=== PATIENT | female | born 2000 | race Caucasian/White ===

== ENCOUNTER 2021-12-31 12:46 | Emergency (ER) | payer OTHER ==
[2021-12-31 13:26] VITALS: BMI 30.2
[2021-12-31] MEDS ORDERED: IBUPROFEN 600 MG TABLET (FP) PO ONE ×2 (14:00→14:06)
[2021-12-31 15:38] VITALS: BP 128/60; PULSE 87; TEMP 98.1
[2022-01-01 12:11] LABS: SARS-CoV-2 NAA Not Detected (Not Detected)
== END 2021-12-31 15:38 | disposition home or self-care (01) ==
LOC: JER 12:46
DX: J02.9 Acute pharyngitis, unspecified (principal)
CPT/HCPCS: 87651; 87804; 99283-25; C9803-CS; U0003; U0005

== ENCOUNTER 2024-05-25 13:44 | Emergency (ER) | payer OTHER ==
[2024-05-25 13:51] VITALS: BP 110/68; PULSE 95; RESP 20; TEMP 99.4; BMI 34.9
[2024-05-25] MEDS: ACETAMINOPHEN 325 MG TABLET (FP) PO ONE (14:18)
[2024-05-25] MEDS ORDERED: ACETAMINOPHEN 325 MG TABLET (FP) ONE (14:18)
[2024-05-25 14:37] LABS: EPI CELLS 14 /uL (0-25.1); HYALINE CASTS 1 /uL (0-3.1); PH,URINE 5.5 (5.0-8.0); URINE APPEARANCE CLEAR; URINE BACTERIA 39 /uL (0-1359); URINE BILIRUBIN NEGATIVE (NEGATIVE); URINE COLOR YELLOW; URINE GLUCOSE (UA) NEGATIVE (NEGATIVE); URINE KETONE NEGATIVE (NEGATIVE); URINE LEUK ESTERASE NEGATIVE (NEGATIVE); URINE NITRITE NEGATIVE (NEGATIVE); URINE PROTEIN NEGATIVE (NEGATIVE); URINE RBC 36 /uL (0-23.9); URINE UROBILINOGEN 0.2 mg/dL (0.2-1.0); URINE WBC 10 /uL (0-25.8)
[2024-05-25 16:45] LABS: HIV INTERPRETATION NEGATIVE (NEGATIVE)
== END 2024-05-25 14:54 | disposition home or self-care (01) ==
LOC: JERFT 13:44
DX: R09.81 Nasal congestion (principal); J02.9 Acute pharyngitis, unspecified; R05.9 Cough, unspecified; R50.9 Fever, unspecified; M79.10 Myalgia, unspecified site; R07.89 Other chest pain; J06.9 Acute upper respiratory infection, unspecified; Z20.822 Contact with and (suspected) exposure to COVID-19
CPT/HCPCS: 0241U-QW; 36415; 81003; 84703; 86803; 87389; 99283-25

== ENCOUNTER 2024-05-28 04:19 | Emergency (ER) | payer OTHER ==
[2024-05-28 04:35] VITALS: RESP 18; TEMP 98; BMI 28.3
[2024-05-28] MEDS ORDERED: ACETAMINOPHEN 500 MG TABLET (FP) ONE (05:36)
[2024-05-28] MEDS: ACETAMINOPHEN 500 MG TABLET (FP) PO ONE (05:45)
[2024-05-28] MEDS: KETOROLAC TROMETHAMINE 15 MG/ML VIAL IM ONE (05:47)
[2024-05-28] MEDS ORDERED: KETOROLAC TROMETHAMINE 30 MG/1 ML VIAL ONE (06:28)
[2024-05-28] MEDS: KETOROLAC TROMETHAMINE 30 MG/1 ML VIAL IM ONE (06:33)
[2024-05-28 06:34] VITALS: BP 102/67; PULSE 72
== END 2024-05-28 06:34 | disposition home or self-care (01) ==
LOC: JER 04:19
PROC: 3E0133Z Introduction of Anti-inflammatory into Subcutaneous Tissue, Percutaneous Approach (ICD-10-PCS; principal; 2024-05-28)
DX: M25.511 Pain in right shoulder (principal)
CPT/HCPCS: 73030-TC-RT-FY; 84703; 99284-25

== ENCOUNTER 2024-05-30 18:04 | Emergency (ER) | payer OTHER ==
[2024-05-30 18:11] VITALS: TEMP 99; BMI 34.9
[2024-05-30] MEDS ORDERED: ONDANSETRON 4 MG/2 ML VIAL ONE (20:09)
[2024-05-30] MEDS ORDERED: FAMOTIDINE 20 MG/50 ML IVPB 20 MG/50 ML MG IVPB ONE (20:09)
[2024-05-30] MEDS ORDERED: ACETAMINOPHEN INJECTION 100 ML ONE (20:09)
[2024-05-30] MEDS: ACETAMINOPHEN 1000 MG/100 ML BAG IVPB ONE (20:35)
[2024-05-30] MEDS: SODIUM CHLORIDE 0.9% 500 ML INFUS.BAG IV ONE (20:35)
[2024-05-30] MEDS: DEXTROSE 5%-NORMAL SALINE 1,000 ML IV ONE ×2 (20:35→21:34)
[2024-05-30] MEDS: FAMOTIDINE 20 MG/50 ML IVPB 20 MG/50 ML MG IVPB ONE (20:35)
[2024-05-30] MEDS: ONDANSETRON 4 MG TABLET PO ONE (20:35)
[2024-05-30 20:39] LABS: BASO % 0.7 % (0-2.0); EOS % 0.6 % (0-4.5); HEMATOCRIT 39.8 % (32.4-45.2); HEMOGLOBIN 12.9 GM/dL (10.7-15.3); MCH 29.1 pg (25.7-33.7); MCHC 32.5 g/dl (32.0-36.0); MEAN CELL VOLUME 89.6 fl (80-96); MEAN PLT VOLUME 8.4 fl (7.5-11.1); MONO % 8.1 % (3.8-10.2); NEUT % 66.6 % (42.8-82.8); PLATELET COUNT 225 10^3/uL (134-434); RBC 4.44 M/mm3 (3.60-5.2); RDW 14.4 % (11.6-15.6); WHITE BLOOD COUNT 10.6 K/mm3 (4.0-10.0)
[2024-05-30 20:59] LABS: POTASSIUM 3.9 mmol/L (3.5-5.1)
[2024-05-30 21:01] LABS: CALCIUM 8.8 mg/dL (8.5-10.1)
[2024-05-30 21:02] LABS: ALBUMIN 3.9 g/dl (3.4-5.0)
[2024-05-30 21:04] LABS: CREATININE 1.3 mg/dL (0.55-1.3)
[2024-05-30 21:05] LABS: BILIRUBIN,TOTAL 0.6 mg/dL (0.2-1); TOT PROT 7.4 g/dl (6.4-8.2)
[2024-05-31 00:27] VITALS: BP 118/79; PULSE 78; RESP 17
== END 2024-05-31 00:27 | disposition home or self-care (01) ==
LOC: JER 18:04
PROC: 3E033GC Introduction of Other Therapeutic Substance into Peripheral Vein, Percutaneous Approach (ICD-10-PCS; principal; 2024-05-30)
PROC: 3E033GC Introduction of Other Therapeutic Substance into Peripheral Vein, Percutaneous Approach (ICD-10-PCS; 2024-05-30)
PROC: 3E033GC Introduction of Other Therapeutic Substance into Peripheral Vein, Percutaneous Approach (ICD-10-PCS; 2024-05-30)
DX: R11.2 Nausea with vomiting, unspecified (principal)
CPT/HCPCS: 36415; 71046-TC-FY; 80053; 83690; 84703; 85025; 93005; 93010; 99285-25

== ENCOUNTER 2025-01-02 11:41 | Emergency (ER) | payer OTHER ==
[2025-01-02 12:00] VITALS: BP 135/64; PULSE 107; RESP 18; TEMP 100.6; BMI 33.6
[2025-01-02] MEDS ORDERED: ACETAMINOPHEN INJECTION 100 ML ONE (13:47)
[2025-01-02] MEDS ORDERED: ONDANSETRON 4 MG/2 ML VIAL ONE (13:47)
[2025-01-02] MEDS ORDERED: FAMOTIDINE 20 MG/50 ML IVPB 20 MG/50 ML MG IVPB ONE (13:48)
[2025-01-02 13:50] LABS: ABSOLUTE IMMATURE GRANULOCYTES 0.06 x10^3/uL (0.0-0.031); BASOPHILS # 0.03 x10^3/uL (0.01-0.08); EOSINOPHIL % 0.1 % (0.7-5.8); EOSINOPHILS # 0.01 x10^3/uL (0.04-0.36); HEMATOCRIT 39.9 % (34.1-44.9); HEMOGLOBIN 12.9 g/dL (11.2-15.7); MCHC 32.3 g/dl (32.2-35.5); MEAN CELL VOLUME 91.7 fl (79.4-94.8); MEAN PLT VOLUME 10.7 fl (9.4-12.3); MONOCYTE # 0.85 x10^3/uL (0.24-0.86); MONOCYTE % 6.2 % (4.7-12.5); PLATELET COUNT 195 x10^3/uL (182-369); RDW 13.5 % (12.1-16.5)
[2025-01-02 14:12] LABS: THROAT:GRP A STREP DETECTED (NOTDETECTED)
[2025-01-02] MEDS: ACETAMINOPHEN 1000 MG/100 ML BAG IVPB ONE (14:30)
[2025-01-02] MEDS: SODIUM CHLORIDE 0.9% 500 ML INFUS.BAG IV ONE (14:30)
[2025-01-02] MEDS: ONDANSETRON 4 MG/2 ML VIAL IVPUSH ONE (14:31)
[2025-01-02] MEDS: FAMOTIDINE 20 MG/50 ML IVPB 20 MG/50 ML MG IVPB ONE (14:31)
[2025-01-02 14:53] LABS: CHLORIDE 107 mmol/L (98-107); POTASSIUM 4.3 mmol/L (3.5-5.1); SODIUM 138 mmol/L (136-145)
[2025-01-02 14:57] LABS: CALCIUM 9.3 mg/dL (8.5-10.1)
[2025-01-02 14:58] LABS: ANION GAP 11 mmol/L (4-13); CO2 21 mmol/L (21-32); GLUCOSE,RANDOM 94 mg/dL (74-106)
[2025-01-02 15:01] LABS: CREATININE 0.9 mg/dL (0.55-1.3); SGOT/AST 24 U/L (15-37); SGPT/ALT 22 U/L (13-61)
[2025-01-02 15:02] LABS: TOT PROT 7.3 g/dl (6.4-8.2)
[2025-01-02 15:03] LABS: BILIRUBIN,TOTAL 0.6 mg/dL (0.2-1)
[2025-01-02 15:05] LABS: ALK PHOS 76 U/L (45-117)
[2025-01-02 15:07] LABS: HCV DIAGNOSTIC IN-HOUSE W/RFLX NON-REACTIVE (NONREACTIVE); HIV INTERPRETATION NEGATIVE (NEGATIVE)
[2025-01-02] MEDS ORDERED: DEXAMETHASONE SOD PHOSPHATE 10 MG/1 ML VIAL ONE (15:41)
[2025-01-02] MEDS: DEXAMETHASONE SOD PHOSPHATE 10 MG/1 ML VIAL PO ONE (15:48)
== END 2025-01-02 15:48 | disposition home or self-care (01) ==
LOC: JER 11:41
PROC: 3E033GC Introduction of Other Therapeutic Substance into Peripheral Vein, Percutaneous Approach (ICD-10-PCS; principal; 2025-01-02)
PROC: 3E033NZ Introduction of Analgesics, Hypnotics, Sedatives into Peripheral Vein, Percutaneous Approach (ICD-10-PCS; 2025-01-02)
PROC: 3E033GC Introduction of Other Therapeutic Substance into Peripheral Vein, Percutaneous Approach (ICD-10-PCS; 2025-01-02)
DX: J03.00 Acute streptococcal tonsillitis, unspecified (principal); R50.9 Fever, unspecified
CPT/HCPCS: 0241U-QW; 36415; 80053; 84702; 85025; 86803; 87389; 87651; 99284-25; J0131; J1100